=== PATIENT | male | born 1975 | race Caucasian/White ===

== ENCOUNTER 2017-05-28 08:30 | Emergency (ER) | payer SELFPAY ==
[~2017-05-28] VITALS: Wt 90.0 kg
[2017-05-28] MEDS ORDERED: SOD CHLORIDE 0.9% 1,000 ML IV STA (08:36)
--- NOTE | 2017-05-28 08:52 | ERD ---
ER Documentation Chief Complaint Chief Complaint SMOKED METH AND FEELS ANXIOUS AND PALPITATIONS. NO N/V. MILD SOB NOTED. HPI This is a 42-year-old male who is feeling anxious and having palpitations after using methamphetamine. The patient describes a history of anxiety. He describes a history of depression and takes medications. Prior to arrival he smoked methamphetamine. He states that he is feeling anxious. He denies any chest pain or pressure, no headache no slurred speech. He denies any suicidal homicidal intent. ROS All systems reviewed and are negative except as per history of present illness. PMhx/Soc History of Surgery: No Anesthesia Reaction: No Hx Neurological Disorder: No Hx Respiratory Disorders: No Hx Cardiac Disorders: No Hx Psychiatric Problems: Yes (ANXIETY, DEPRESSION, PTSD, DRUG ABUSE) Hx Miscellaneous Medical Probl: No Hx Alcohol Use: Yes (OCCASIONAL) Hx Substance Use: Yes (CRYSTAL METH, MARIJUANA) Hx Tobacco Use: Yes Smoking Status: Current every day smoker FmHx Family History: No diabetes Physical Exam Vitals Vital Signs Date Time Temp Pulse Resp B/P Pulse Ox O2 Delivery O2 Flow Rate FiO2 05/28/17 08:38 98.7 119 22 153/115 99 Physical Exam General: Well developed, well nourished, slight agitation Head: Normocephalic, atraumatic. Eyes: Pupils equally reactive, EOM intact ENT: Moist mucous membranes Neck: Supple, no lymphadenopathy Respiratory: Lungs clear bilaterally, no distress Cardiovascular: Tachycardia, no murmurs, rubs, or gallops Abdominal: Soft, non-tender, non-distended, no peritoneal signs : Deferred MSK: No edema, no unilateral swelling, 5/5 strength Neurologic: Alert and oriented, moving all extremities, normal speech, no focal weakness, no cerebellar signs Skin: No rash Psych: Normal mood, poor insight Results 24 hrs Current Medications Medications (Trade) Dose Ordered Sig/Edy Route PRN Reason Start Time Stop Time Status Last Admin Dose Admin Sodium Chloride (NS) 1,000 ml @ 1,000 mls/hr Q1H STAT IV 05/28/17 08:36 05/28/17 09:35 Lorazepam (Ativan) 1 mg ONCE ONCE IV 05/28/17 09:00 05/28/17 09:01 Procedures/MDM EKG, MONITORS, & DIAGNOSTIC IMAGING: EKG: I reviewed and interpreted a 12-lead EKG. Rhythm: Sinus tach Ectopy: None Intervals: No abnormalities ST segments: No elevations or depressions T waves: No contiguous inversions MEDICAL DECISION MAKING: The patient presents with agitation, palpitations status post using methamphetamine. Clinical exam and presentation consistent with acute sympathomimetic toxidrome. It is mild. The patient has no evidence of endorgan dysfunction or acute coronary syndrome. No suicidal or homicidal ideation. Patient has poor insight as to his drug abuse problem. ER COURSE: The patient was given Ativan, IV fluids with normalization of his symptoms and heart rate. His EKG is nonischemic. At this point the patient can be safely discharged home. Cessation of drug use was advised to the patient. No indication for inpatient hospitalization or prolonged observation. In the emergency room. The patient is able to navigate the community. He is safe for discharge. I kept the patient and/or family informed of laboratory and diagnostic imaging results throughout the emergency room course. DISPOSITION PLAN: We discussed follow up with the patient's primary care doctor within 24 to 48 hours as needed. We also discussed return to the emergency room for worsening symptoms or worsening condition. Outpatient referral: [None required] Departure Diagnosis: Primary Impression: Methamphetamine abuse Additional Impression: Methamphetamine use Condition: Stable MARIA ISABEL ALVARADO MD May 28, 2017 08:52
[2017-05-28] MEDS ORDERED: LORAZEPAM 2 MG INJ IV ONE ×2 (09:00→10:30)
[2017-05-28] MEDS ORDERED: HALOPERIDOL 5 MG INJ IV ONE (13:00)
[2017-05-28 14:10] VITALS: BP 105/78; PULSE 78; RESP 14
[2017-05-28 14:14] LABS: BASOPHIL # 0.1 10^3/ul (0.0-0.1); BASOPHILS % 0.7 % (0.0-2.0); EOSINOPHILS # 0.1 10^3/ul (0.0-0.5); HEMOGLOBIN 13.5 g/dl (14.0-18.0); LYMPHOCYTES # 2.5 10^3/ul (0.8-2.9); LYMPHOCYTES % 25.6 % (15.0-51.0); MEAN CORPUSCULAR HEMOGLOBIN 29.2 pg (29.0-33.0); MEAN CORPUSCULAR HGB CONC 34.6 g/dl (32.0-37.0); MEAN CORPUSCULAR VOLUME 84.4 fl (82.0-101.0); MEAN PLATELET VOLUME 9.7 fl (7.4-10.4); MONOCYTES % 10.1 % (0.0-11.0); NEUTROPHIL # 6.1 10^3/ul (1.6-7.5); NEUTROPHILS % 62.4 % (39.0-77.0); PLATELET COUNT 350 10^3/UL (140-415); RED BLOOD COUNT 4.62 10^6/ul (4.70-6.10); RED CELL DISTRIBUTION WIDTH 13.5 % (11.5-14.5); WHITE BLOOD COUNT 9.7 10^3/ul (4.8-10.8)
[2017-05-28 14:44] LABS: ALANINE AMINOTRANSFERASE 36 IU/L (13-69); ALBUMIN 3.9 g/dl (3.3-4.9); ALBUMIN/GLOBULIN RATIO 1.14; ALKALINE PHOSPHATASE 85 IU/L (42-121); ANION GAP 16 (8-16); ASPARTATE AMINO TRANSFERASE 27 IU/L (15-46); BILIRUBIN,INDIRECT 0.8 mg/dl (0-1.1); BILIRUBIN,TOTAL 0.8 mg/dl (0.2-1.3); BLOOD UREA NITROGEN 14 mg/dl (7-20); CALCIUM 9.1 mg/dl (8.4-10.2); CARBON DIOXIDE 25 mmol/L (21-31); CHLORIDE 107 mmol/L (97-110); CREATININE 0.91 mg/dl (0.61-1.24); GLUCOSE 111 mg/dl (70-220); POTASSIUM 4.6 mmol/L (3.5-5.1); SODIUM 143 mmol/L (135-144); TOTAL PROTEIN 7.3 g/dl (6.1-8.1)
[2017-05-28 14:45] LABS: ETHANOL < 10.0 mg/dl
== END 2017-05-28 17:25 | disposition home or self-care (01) ==
LOC: E/R 08:30
DX: F15.10 Other stimulant abuse, uncomplicated (principal); F17.210 Nicotine dependence, cigarettes, uncomplicated
CPT/HCPCS: 80053; 80306; 85025; 93005; 96374; 96375; 96376; 99284; J1630; J2060; J7030